=== PATIENT | male | born 1955 | race Caucasian/White ===

== ENCOUNTER → 2024-01-06 | Day surgery (SDC) | payer BC, MEDICARE ==
[~2024-01-06] VITALS: Ht 195.5 cm; Wt 143.8 kg
[~2024-01-06] MED LIST: ATROPINE SULFATE 1% 2 ML BOTTLE ONE; ATROPINE SULFATE 1% 2 ML BOTTLE OPH SCH; BAYER ASPIRIN C81 MG PO; Balanced Salt Solution 500 ML OPH SCH; Cefuroxime Sodium 5 MG in BALANCED SALT IRRIG SOLN NO.2 0.5 ML,SYRINGE, DISPOSABLE, 10 ... IO SCH; Cyclopentolate Hydrochloride 1% 2 ML BOTTLE OPH ONE; Cyclopentolate Hydrochloride 1% 2 ML BOTTLE OPH SCH; LEVOTHYROXINE75 MCG PO; LIPITOR40 MG PO; METFORMIN HYDR500 MG PO; MULTIVITAMINS1 EAC6 PO; Midazolam Hydrochloride 2 MG/2 ML VIAL IV ONE; OFLOXACIN 0.3% 5 ML BOTTLE ONE; OFLOXACIN 0.3% 5 ML BOTTLE OPH SCH; PHENYLEPHRINE/KETOROLAC 4 ML in Balanced Salt Solution 500 ML OPH SCH; POVIDONE IODINE 5% OPHTHALMIC 30 ML BOTTLE OPH ONE; POVIDONE IODINE 5% OPHTHALMIC 30 ML BOTTLE OPH SCH; PRADAXA150 MG PO; Phenylephrine Hydrochloride 2 ML BOT OPH ONE; Phenylephrine Hydrochloride 2 ML BOT OPH SCH; Proparacaine Hydrochloride 15 ML BOT OPH ONE; Proparacaine Hydrochloride 15 ML BOT OPH SCH; SODIUM CHLORIDE 0.9% 0 ML IV ONE; SODIUM CHLORIDE 0.9% 1,000 ML IV SCH; TOPROL XL25 MG PO; TROPICAMIDE 3 ML BOT OPH ONE; TROPICAMIDE 3 ML BOT OPH SCH; Tetracaine Hydrochloride 0.5% 4 ML BOT OPH ONE; Tetracaine Hydrochloride 0.5% 4 ML BOT OPH SCH; VITAMIN D3250 MC2 PO; prednisoLONE acetate 1% OPHTHALMIC 5 ML BOT OPH ONE; prednisoLONE acetate 1% OPHTHALMIC 5 ML BOT OPH SCH
[2024-01-06 07:15] VITALS: BP 138/70
[2024-01-06 08:00] VITALS: BP 119/72
[2024-01-06 08:15] VITALS: BP 119/74
[2024-01-06 08:30] VITALS: BP 120/80
== END | disposition home or self-care (01) ==
LOC: SDC 01-01 10:15
PROVIDERS: ATTEND Ophthalmology
DX: E11.36 Type 2 diabetes mellitus with diabetic cataract (principal); H25.11 Age-related nuclear cataract, right eye; E78.00 Pure hypercholesterolemia, unspecified; E03.9 Hypothyroidism, unspecified; I25.10 Atherosclerotic heart disease of native coronary artery without angina pectoris; I25.2 Old myocardial infarction; Z87.891 Personal history of nicotine dependence; Z98.84 Bariatric surgery status; Z98.890 Other specified postprocedural states; Z79.890 Hormone replacement therapy; Z79.82 Long term (current) use of aspirin; Z79.84 Long term (current) use of oral hypoglycemic drugs; Z79.899 Other long term (current) drug therapy

== ENCOUNTER → 2024-02-10 | Day surgery (SDC) | payer BC, MEDICARE ==
[~2024-02-10] VITALS: Ht 195.5 cm; Wt 136.1 kg
[~2024-02-10] MED LIST changes: -Cyclopentolate Hydrochloride 1% 2 ML BOTTLE OPH ONE; +FUROSEMIDE20 M1 PO; +HYDROXYZINE PAM25 M1 PO; +Lopressor25 MG PO; -SODIUM CHLORIDE 0.9% 0 ML IV ONE
[2024-02-10 07:00] VITALS: BP 150/80
[2024-02-10 08:53] VITALS: BP 130/87
[2024-02-10 09:15] VITALS: BP 140/76
[2024-02-10 09:29] VITALS: BP 138/74
== END | disposition home or self-care (01) ==
LOC: SDC 02-05 09:30
PROVIDERS: ATTEND Ophthalmology
DX: E11.36 Type 2 diabetes mellitus with diabetic cataract (principal); H25.12 Age-related nuclear cataract, left eye; E78.00 Pure hypercholesterolemia, unspecified; I25.2 Old myocardial infarction; I25.110 Atherosclerotic heart disease of native coronary artery with unstable angina pectoris; Z87.891 Personal history of nicotine dependence; Z95.1 Presence of aortocoronary bypass graft; Z91.040 Latex allergy status; Z91.041 Radiographic dye allergy status; Z98.890 Other specified postprocedural states; Z79.890 Hormone replacement therapy; Z79.82 Long term (current) use of aspirin; Z79.899 Other long term (current) drug therapy